=== PATIENT | female | born 1950 | race Caucasian/White ===

== ENCOUNTER 2016-12-31 10:02 | Emergency (ER) | payer MEDICARE, BC ==
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
== END 2016-12-31 11:08 | disposition disaster alternative care site (69) ==
LOC: GACC 10:02
PROC: 2W3EX1Z Immobilization of Right Hand using Splint (ICD-10-PCS; principal; 2016-12-31)
DX: S62.111A Displaced fracture of triquetrum [cuneiform] bone, right wrist, initial encounter for closed fracture (principal); S93.401A Sprain of unspecified ligament of right ankle, initial encounter; Z88.5 Allergy status to narcotic agent; Z88.8 Allergy status to other drugs, medicaments and biological substances; Z91.041 Radiographic dye allergy status; V19.9XXA Pedal cyclist (driver) (passenger) injured in unspecified traffic accident, initial encounter